=== PATIENT | male | born 1970 | race Two or more races ===

== ENCOUNTER 2024-05-27 20:43 | Inpatient (IN) | payer MEDICAID, OTHER ==
[~2024-05-27] VITALS: Ht 172.7 cm; Wt 74.4 kg
[2024-05-27] MEDS ORDERED: ONDANSETRON HCL/PF 4 MG/2 ML VIAL IVP PRN (21:30)
[2024-05-27] MEDS ORDERED: MAGNESIUM HYDROXIDE 30 ML UDC PO PRN (21:30)
[2024-05-27] MEDS ORDERED: ACETAMINOPHEN 325 MG TABLET PO PRN (21:30)
[2024-05-27] MEDS ORDERED: MAG HYDROX/AL HYDROX/SIMETH 30 ML UDC PO PRN (21:30)
[2024-05-27] MEDS: IV NS 0.9% 1,000 ML IV SCH (21:48)
[2024-05-28] VITALS: BP_SYST 101; BP_SYST 99; BP_DIAS 60; BP_DIAS 73; TEMP 98.1; TEMP 98.2; O2SAT 96; O2SAT 99
[2024-05-28 04:00] VITALS: BP 98/73; TEMP 98.2; O2SAT 98
[2024-05-28 07:37] LABS: BASOPHILS % (AUTO) 0.3 % (0.0-2.0); EOSINOPHILS # (AUTO) 0.1 K/uL (0.0-0.7); EOSINOPHILS % (AUTO) 1.3 % (0.0-6.0); HEMATOCRIT 43 % (39-51); LYMPHOCYTES # (AUTO) 1.9 K/uL (0.8-4.8); MEAN CORPUSCULAR HEMOGLOBIN 29 PG (26.0-33.0); MEAN CORPUSCULAR HGB CONC 33 g/dl (31.0-36.0); MEAN CORPUSCULAR VOLUME 90 fL (80-96); MONOCYTES # (AUTO) 0.6 K/uL (0.1-1.30); MONOCYTES % (AUTO) 8.5 % (2.0-12.0); NEUTROPHILS # (AUTO) 4.3 K/uL (1.8-8.9); NEUTROPHILS % (AUTO) 61.9 % (43.0-81.0); PLATELET COUNT (AUTO) 222 K/uL (150-450); RED BLOOD CELL COUNT(AUTO) 4.76 MIL/uL (4.5-6.0); RED CELL DISTRIBUTION WIDTH 14.1 % (11.5-15.0); WHITE BLOOD COUNT (AUTO) 6.9 K/uL (4.3-11.0)
[2024-05-28 07:47] LABS: CALCIUM, SERUM 8.2 mg/dL (8.5-10.1); CARBON DIOXIDE 22 mmol/L (21-32); CHLORIDE 110 mmol/L (98-107); CREATININE 0.7 mg/dL (0.6-1.3); GLUCOSE 106 mg/dL (74-106); PHOSPHORUS 2.5 mg/dL (2.5-4.9); POTASSIUM 3.8 mmol/L (3.5-5.1); SODIUM SERUM 141 mmol/L (136-145); UREA NITROGEN, BLOOD 9 mg/dL (7-18)
[2024-05-28 08:00] VITALS: BP 98/71; TEMP 97.7; O2SAT 100
[2024-05-28 08:17] LABS: CHOLESTEROL 176 mg/dL (<200); HDL CHOLESTEROL 57 mg/dL (40-60); LDL 113 mg/dL (0-99); TRIGLYCERIDES 66 mg/dL (30-150)
[2024-05-28] MEDS: PANTOPRAZOLE 40 MG VIAL IV SCH (08:40)
[2024-05-28] MEDS ORDERED: AMIODARONE 150 MG in IV D5W 100 ML IV ONE (09:30)
[2024-05-28] MEDS ORDERED: AMIODARONE 450 MG in IV D5W 250 ML IV PRN (09:30)
[2024-05-28 09:37] LABS: ALBUMIN 3.1 g/dL (3.4-5.0); BILIRUBIN,DIRECT 0.1 mg/dL (0.0-0.2); BILIRUBIN,TOTAL 0.5 mg/dL (0.2-1.0); TOTAL PROTEIN, SERUM 6.1 g/dL (6.4-8.2)
[2024-05-28] MEDS: APIXABAN 5 MG TABLET PO SCH (09:54)
[2024-05-28] MEDS: AMIODARONE 150 MG in IV D5W 100 ML IV ONE (09:56)
[2024-05-28] MEDS: AMIODARONE 450 MG in IV D5W 241 ML IV PRN (10:16)
[2024-05-28 12:00] VITALS: BP 92/71; TEMP 98.1; O2SAT 98
[2024-05-28 16:00] VITALS: BP 94/65; TEMP 98.1; O2SAT 98
[2024-05-28 16:54] LABS: BASOPHILS # (AUTO) 0.1 K/uL (0.0-0.2); BASOPHILS % (AUTO) 1.2 % (0.0-2.0); EOSINOPHILS # (AUTO) 0.1 K/uL (0.0-0.7); EOSINOPHILS % (AUTO) 1.6 % (0.0-6.0); HEMATOCRIT 39 % (39-51); HEMOGLOBIN 13.2 g/dL (13.5-17.5); LYMPHOCYTES # (AUTO) 2.2 K/uL (0.8-4.8); LYMPHOCYTES % (AUTO) 31.6 % (20.0-44.0); MEAN CORPUSCULAR HEMOGLOBIN 30 PG (26.0-33.0); MEAN CORPUSCULAR HGB CONC 34 g/dl (31.0-36.0); MEAN CORPUSCULAR VOLUME 89 fL (80-96); MONOCYTES # (AUTO) 0.5 K/uL (0.1-1.30); MONOCYTES % (AUTO) 6.8 % (2.0-12.0); NEUTROPHILS % (AUTO) 58.8 % (43.0-81.0); PLATELET COUNT (AUTO) 219 K/uL (150-450); RED BLOOD CELL COUNT(AUTO) 4.38 MIL/uL (4.5-6.0); RED CELL DISTRIBUTION WIDTH 14.3 % (11.5-15.0); WHITE BLOOD COUNT (AUTO) 6.8 K/uL (4.3-11.0)
[2024-05-28 20:00] VITALS: BP 100/68; TEMP 97.9; O2SAT 98
[2024-05-29] VITALS (8 sets, daily range): BP systolic 99–117; BP diastolic 65–87; TEMP 97.6–98.6; O2SAT 95–100
[2024-05-29] MEDS: PANTOPRAZOLE 40 MG TABLET.DR PO SCH (09:14)
[2024-05-29] MEDS ORDERED: ANESTHESIA TRAY IN PYXIS 1 EA TRAY MC ONE (10:42)
[2024-05-29] MEDS ORDERED: IV NS 0.9% 1,000 ML IV PRN (10:44)
[2024-05-29] MEDS: METOPROLOL SUCCINATE 50 MG TAB.SR.24H PO SCH (11:56)
== END 2024-05-29 15:10 | disposition home or self-care (01) | DRG 309 ==
LOC: TELE1 20:43 → TELE-TD 05-28 21:25 → ICU 05-29 08:27 → TELE-TD 05-29 11:52
DX: I48.0 Paroxysmal atrial fibrillation (principal); E87.1 Hypo-osmolality and hyponatremia; E86.0 Dehydration; Z86.79 Personal history of other diseases of the circulatory system
CPT/HCPCS: 36415; 80048-TC; 80061-TC; 80076-TC; 83735-TC; 84100-TC; 84443-TC; 84484-TC; 85025-TC; 93307-TC; A4223; G0378; J0282; J2470; J7030; J7060